=== PATIENT | female | born 1935 | race Caucasian/White ===

== ENCOUNTER 2022-01-30 10:09 | Emergency (ER) | payer MEDICARE | END 2022-01-30 12:03 | disposition home or self-care (01) | LOC: JP.ED 10:09 | DX: F41.9 Anxiety disorder, unspecified (principal); R25.1 Tremor, unspecified | CPT/HCPCS: 36415; 80053; 85025; 99283; 99285 ==

== ENCOUNTER 2022-12-16 18:32 | Emergency (ER) | payer MEDICARE ==
[2022-12-16] MEDS ORDERED: Sodium Chloride 0.9% 10 ML Syringe FLUSH PRN (18:38)
[2022-12-16 19:38] LABS: ESTIMATED GFR 49 mL/min (>60)
[2022-12-16] MEDS ORDERED: Iopamidol 612 MG/ML 100 ML Bottle IV SCH (20:00)
[2022-12-16] MEDS ORDERED: Sodium Chloride 0.9% 50 ML IV SCH (20:00)
== END 2022-12-16 21:17 | disposition home or self-care (01) ==
LOC: JP.ED 18:32
DX: K76.89 Other specified diseases of liver (principal); N28.1 Cyst of kidney, acquired; R10.9 Unspecified abdominal pain; M25.561 Pain in right knee; I10 Essential (primary) hypertension
CPT/HCPCS: 36415; 74177; 80053; 83690; 85025; 99285; J3490; Q9967